=== PATIENT | female | born 1970 | race Caucasian/White ===

== ENCOUNTER 2019-05-10 10:43 | Emergency (ER) | payer BC ==
[~2019-05-10] VITALS: Ht 162.6 cm; Wt 99.8 kg
--- NOTE | 2019-05-10 10:55 | PHYS DOC ---
Adult General Chief Complaint Chief Complaint: ANKLE PROBLEM HPI HPI Patient is a 49-year-old female who presents with complaint of left ankle pain after twisting her ankle shortly before arrival. She states that she is able to bear weight but pain is much worse with weightbearing. She rates at a 9 out of 10 with weightbearing but states this mild when she is just sitting with her leg up. She denies other injuries.[] Review of Systems Review of Systems Constitutional: Denies fever or chills [] Respiratory: Denies cough or shortness of breath [] Cardiovascular: No additional information not addressed in HPI [] Musculoskeletal: Positive left ankle pain [] Integument: Denies rash or skin lesions [] Neurologic: Denies headache, focal weakness or sensory changes [] Physical Exam Physical Exam Constitutional: Well developed, well nourished, no acute distress, non-toxic appearance. [] Cardiovascular: Regular rate and rhythm[] Lungs & Thorax: Bilateral breath sounds clear to auscultation [] Extremities: Examination of left ankle demonstrates mild tenderness to palpation in the lateral malleolus with greater tenderness overlying the course of the anterior talofibular ligament.. [] Neurologic: Alert and oriented X 3, no focal deficits noted. [] EKG EKG [] Radiology/Procedures Radiology/Procedures [] Impressions: PROCEDURE: ANKLE LEFT 3V Study: ANKLE LEFT 3V Indication: Twisting injury. Comparison: None. Findings: No acute fracture seen at the ankle or involving the visualized foot. Linear, chronic ossification seen along the base of the fifth metatarsal as well as adjacent to the lateral calcaneal tubercle which could be degenerative, the sequela of prior trauma or ossicles. The talar dome is intact. No overt widening seen at the syndesmosis. Achilles insertion enthesophyte and a small plantar calcaneal spur. Impression: No acute fracture or malalignment seen at the left ankle. Chronic observations as above. Electronically signed by: YOANNA JOHN MD (05/10/2019 11:14 AM) [facility] Course & Med Decision Making Course & Med Decision Making Pertinent Labs and Imaging studies reviewed. (See chart for details) [] Dragon Disclaimer Dragon Disclaimer This electronic medical record was generated, in whole or in part, using a voice recognition dictation system. Departure Departure: Impression: Primary Impression: Left ankle sprain Disposition: 01 HOME, SELF-CARE Condition: STABLE Patient Instructions: Ankle Sprain Scripts Naproxen (NAPROSYN) 500 Mg Tablet 1 TAB PO BID PRN for PAIN, #20 TAB 0 Refills Prov: LD JUDGE Jr., DO 05/10/19 Problem Qualifiers Primary Impression: Left ankle sprain Encounter type: initial encounter Involved ligament of ankle: anterior talofibular ligament Qualified Codes: S93.492A - Sprain of other ligament of left ankle, initial encounter LD JUDGE Jr. DO May 10, 2019 10:55
--- NOTE | 2019-05-10 11:17 | RAD ---
Study: ANKLE LEFT 3V Indication: Twisting injury. Comparison: None. Findings: No acute fracture seen at the ankle or involving the visualized foot. Linear, chronic ossification seen along the base of the fifth metatarsal as well as adjacent to the lateral calcaneal tubercle which could be degenerative, the sequela of prior trauma or ossicles. The talar dome is intact. No overt widening seen at the syndesmosis. Achilles insertion enthesophyte and a small plantar calcaneal spur. Impression: No acute fracture or malalignment seen at the left ankle. Chronic observations as above. Electronically signed by: YOANNA JOHN MD (05/10/2019 11:14 AM) [facility]
[2019-05-10] MEDS ORDERED: NAPR-683 PO (11:25)
[2019-05-10 11:45] VITALS: BP 138/87
== END 2019-05-10 11:50 | disposition home or self-care (01) ==
LOC: ER 10:43
DX: S93.492A Sprain of other ligament of left ankle, initial encounter (principal); X50.9XXA Other and unspecified overexertion or strenuous movements or postures, initial encounter; Y93.89 Activity, other specified; Y92.89 Other specified places as the place of occurrence of the external cause; Y99.8 Other external cause status
CPT/HCPCS: 29515; 73610; 99284